=== PATIENT | male | born 2000 | race Caucasian/White ===

== ENCOUNTER → 2019-10-30 | Outpatient (CLI) | payer OTHER | LOC: ZCOL.LAB 14:21 | DX: U07.1 COVID-19 (principal) ==

== ENCOUNTER 2020-05-15 01:50 | Emergency (ER) | payer OTHER ==
[~2020-05-15] VITALS: Ht 188 cm; Wt 107.7 kg
[2020-05-15] MEDS ORDERED: PREDNISONE20 MG PO (03:42)
[2020-05-15 03:49] VITALS: BP 126/78; PULSE 71; TEMP 98.1
== END 2020-05-15 03:49 | disposition home or self-care (01) ==
LOC: COL.ER 01:50
DX: L50.9 Urticaria, unspecified (principal); T49.2X5A Adverse effect of local astringents and local detergents, initial encounter
CPT/HCPCS: J1200; J2930; J7030